=== PATIENT | male | born 1960 | race Caucasian/White ===

== ENCOUNTER 2022-04-07 11:43 | Observation (INO) | payer MEDICARE ==
[2022-04-07 12:06] LABS: Absolute Neutrophil Ct (ANC) 5.93 x10^3/uL (1.4-6.9); Basophil (Absolute #) 0.03 x10^3/uL (0-0.4); Eosinophil % 0.6 % (0.00-5.0); Eosinophil (Absolute #) 0.04 x10^3/uL (0-0.5); Hematocrit 32.6 % (42-50); Hemoglobin 11.8 g/dL (12.5-18.0); Lymphocyte (Absolute #) 0.39 x10^3/uL (1.0-4.6); Lymphocytes % 5.5 % (24.0-44.0); Mean Cell Volume 82.1 fL (78-100); Mean Corpuscular Hemoglobin 29.7 pg (26-32); Mean Corpuscular Hgb Concent. 36.2 g/dL (32-36); Mean Platelet Volume 7.6 fL (7.5-11.0); Monocyte (Absolute #) 0.63 x10^3/uL (0.0-1.3); Monocytes % 8.9 % (0.0-12.0); Neutrophil % 83.3 % (36.0-66.0); Platelet Count 209 x10^3/uL (150-450); Red Blood Count 3.97 x10^6/uL (4.1-5.6); Red Cell Distribution Width 13.8 % (11.5-14.0); White Blood Count 7.1 x10^3/uL (4.0-10.5)
[2022-04-07 12:18] LABS: ALBUMIN 4.5 g/dL (3.5-5.0); ALKALINE PHOSPHATASE 113 U/L (38-126); ANION GAP 14.6 MEQ/L (5-15); BLOOD UREA NITROGEN 10 mg/dL (9-20); CHLORIDE 72 mmol/L (98-107); Calcium 9.2 mg/dL (8.4-10.2); Carbon Dioxide 25 mmol/L (22-30); Creatinine 1 0.63 mg/dL (0.66-1.25); EST GLOMERULAR FILTRATION RATE > 60.0 ML/MIN; Glucose 106 mg/dL (74-106); Potassium 3.8 mmol/L (3.5-5.1); SGOT/AST 40 U/L (17-59); SGPT/ALT 28 U/L (0-50); Total Protein 8.1 g/dL (6.3-8.2)
--- NOTE | 2022-04-07 12:24 | ERPHSYRPT ---
- History of Present Illness Source: patient, other (Daughter) Patient Subjective Stated Complaint: pt here for abnormal labs hes sodium was 109, he co nausea and aching all over. he states he has had this problem before Triage Nursing Assessment: pt alert, appears weak, was able to walk to room,. 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 He has been hospitalized x 2 for hyponatremia in [place]. Pt has had N/V over the last 3 days but denies diarrhea/chest pain/fever/dyspnea. No mental status changes are reported. Timing/Duration: yesterday Severity: moderate Modifying Factors: Improves With: nothing Associated Symptoms: nausea, vomiting, loss of appetite, malaise, weakness, No abdominal pain, No shortness of breath, No heartburn, No diaphoresis, No cough, No chills, No chest pain, No fever, No headaches, No rash, No syncope, No seizure Allergies/Adverse Reactions: No Known Drug Allergies Allergy (Unverified 04/07/22 11:54) Home Medications: Amlodipine Besylate [Norvasc] 1 ea DAILY 04/07/22 [History] Levothyroxine Sodium [Euthyrox] 1 ea DAILY 04/07/22 [History] Lisinopril 10 mg [Zestril 10 MG] 10 mg PO DAILY 04/07/22 [History] Magnesium Oxide 400 mg [Mag-Ox 400] 400 mg PO DAILY 04/07/22 [History] Potassium Chloride 40 meq PO DAILY 04/07/22 [History] Tamsulosin HCl 0.4 mg [Flomax 0.4 MG] 0.4 mg PO DAILY 04/07/22 [History] Urea [Ure-Na] 1 ea DAILY 04/07/22 [History] Hx Tetanus, Diphtheria Vaccination/Date Given: No Hx Influenza Vaccination/Date Given: No Hx Pneumococcal Vaccination/Date Given: No Immunizations Up to Date: Yes Travel Risk - International Travel Have you traveled outside of the country in past 3 weeks: No - Coronavirus Screening Are you exhibiting any of the following symptoms?: No - Vaccine Status Have you recieved a Covid-19 vaccination: Yes [employer]: Unknown - Vaccination Dates Date of 2cond Vaccination (if applicable): 2020 Dates if Unknown: ? - Review of Systems Constitutional: No Symptoms Eyes: No Symptoms Ears, Nose, & Throat: No Symptoms Respiratory: No Symptoms Cardiac: No Symptoms Abdominal/Gastrointestinal: No Symptoms, Nausea, Vomiting Genitourinary Symptoms: No Symptoms Musculoskeletal: No Symptoms Skin: No Symptoms Neurological: No Symptoms Psychological: No Symptoms Endocrine: No Symptoms Hematologic/Lymphatic: No Symptoms Immunological/Allergic: No Symptoms - Past Medical History Pertinent Past Medical History: Yes Cardiac History: Hypertension Respiratory History: COPD Other Medical History: throat cancer, liver cancer, possoble lung ca - Past Surgical History Past Surgical History: Yes Other Surgical History: port a cath - Social History Smoking Status: Former smoker Exposure to second hand smoke: No Drug Use: none Patient Lives Alone: No Significant Family History: no pertinent family hx - Nursing Vital Signs Nursing Vital Signs: Initial Vital Signs Temperature 97.4 F 04/07/22 11:47 Respiratory Rate 20 04/07/22 11:47 Pain Scale Pain Intensity 4 Mildly tachypneic - Physical Exam General Appearance: no apparent distress Eye Exam: PERRL/EOMI, eyes nml inspection Ears, Nose, Throat Exam: normal ENT inspection, TMs normal, pharynx normal, moist mucous membranes Neck Exam: normal inspection, non-tender, supple, full range of motion, No meningismus, No mass, No Brudzinski, No Kernig's, No carotid bruit Respiratory Exam: airway intact, crackles/rales (Faint rales at bases B), No chest tenderness Cardiovascular Exam: regular rate/rhythm, normal heart sounds, normal peripheral pulses, No murmur Gastrointestinal/Abdomen Exam: soft, normal bowel sounds, No tenderness Back Exam: normal inspection, normal range of motion, No CVA tenderness, No vertebral tenderness Extremity Exam: normal inspection, normal range of motion, pelvis stable Neurologic Exam: alert, oriented x 3, cooperative, setup operator II-XII nml as tested, normal mood/affect, sensation nml Skin Exam: normal color Lymphatic Exam: No adenopathy - Course Nursing assessment & vital signs reviewed: Yes EKG Interpreted by Me: RATE (NSR/Rate72/Prolonged QTc/1mm ST depression V2) Ordered Tests: Active Orders 24 hr Category Date Time Status EKG-ER Only STAT Care 04/07/22 12:24 Completed IV Insertion STAT Care 04/07/22 12:03 Completed Heart-Healthy Diet Diet 04/07/22 Dinner Active BMP AM.LAB Lab 04/08/22 04:00 Ordered BMP Stat Lab 04/07/22 21:00 Ordered CBC W DIFF AM.LAB Lab 04/08/22 04:00 Ordered CBC W DIFF Stat Lab 04/07/22 12:00 Completed CMP Stat Lab 04/07/22 12:00 Completed TROPONIN Q3H Lab 04/07/22 12:30 Completed TROPONIN Q3H Lab 04/07/22 15:48 Completed TROPONIN Q3H Lab 04/07/22 18:30 Ordered TROPONIN Q3H Lab 04/07/22 21:30 Ordered TROPONIN Q3H Lab 04/08/22 00:30 Ordered Transfer Order Routine Transfer 04/07/22 Completed Medication Summary Generic Name Dose Route Start Last Admin Trade Name Freq PRN Reason Stop Dose Admin Amlodipine Besylate 10 mg 04/08/22 10:00 Amlodipine Besylate 5 Mg Tablet PO 05/08/22 09:59 DAILY CAIO Sodium Chloride 1,000 mls @ 50 mls/hr 04/07/22 13:15 04/07/22 13:14 Sodium Chloride 0.9% 1000 Ml IV 05/07/22 13:14 50 mls/hr .Q20H CAIO Administration Levothyroxine Sodium 100 mcg 04/07/22 15:00 04/07/22 15:43 Levothyroxine Sodium 100 Mcg Tablet PO 05/07/22 14:59 100 mcg DAILY CAIO Administration Lisinopril 2.5 mg 04/08/22 10:00 Lisinopril 5 Mg Tablet PO 05/08/22 09:59 DAILY CAIO Magnesium Oxide 400 mg 04/07/22 15:00 04/07/22 15:42 Magnesium Oxide 400 Mg Tablet PO 05/07/22 14:59 400 mg DAILY CAIO Administration Potassium Chloride 40 meq 04/07/22 15:00 04/07/22 15:42 Potassium Chloride Tab 10 Meq Tab PO 05/07/22 14:59 40 meq DAILY CAIO Administration Tamsulosin HCl 0.4 mg 04/07/22 15:00 04/07/22 15:42 Tamsulosin Hcl 0.4 Mg Cap PO 05/07/22 14:59 0.4 mg DAILY CAIO Administration Urea 15 gm 04/07/22 15:00 04/07/22 15:41 Urea 15 Gm Powd.Pack PO 05/07/22 14:59 15 gm DAILY CAIO Administration Lab/Rad Data: Laboratory Result Diagrams 04/07/22 12:00 04/07/22 12:00 Laboratory Results 04/07/22 04/07/22 04/07/22 Range/Units 13:00 12:30 12:00 WBC (4.0-10.5) x10^3/uL RBC (4.1-5.6) x10^6/uL Hgb (12.5-18.0) g/dL Hct (42-50) % MCV (78-100) fL MCH (26-32) pg MCHC (32-36) g/dL RDW (11.5-14.0) % Plt Count (150-450) x10^3/uL MPV (7.5-11.0) fL Gran % (36.0-66.0) % Immature Gran % (Auto) (0.00-0.4) % Nucleat RBC Rel Count (0.00-0.1) % Eos # (Auto) (0-0.5) x10^3/uL Immature Gran # (Auto) (0.00-0.03) x10^3u/L Absolute Lymphs (auto) (1.0-4.6) x10^3/uL Absolute Monos (auto) (0.0-1.3) x10^3/uL Absolute Nucleated RBC (0.00-0.01) x10^3u/L Lymphocytes % (24.0-44.0) % Monocytes % (0.0-12.0) % Eosinophils % (0.00-5.0) % Basophils % (0.0-0.4) % Absolute Granulocytes (1.4-6.9) x10^3/uL Basophils # (0-0.4) x10^3/uL Sodium 107 L* (137-145) mmol/L Potassium 3.8 (3.5-5.1) mmol/L Chloride 72 L (98-107) mmol/L Carbon Dioxide 25 (22-30) mmol/L Anion Gap 14.6 (5-15) MEQ/L BUN 10 (9-20) mg/dL Creatinine 0.63 L (0.66-1.25) mg/dL Estimated GFR > 60.0 ML/MIN Glucose 106 (74-106) mg/dL Calcium 9.2 (8.4-10.2) mg/dL Total Bilirubin 1.00 (0.2-1.3) mg/dL AST 40 (17-59) U/L ALT 28 (0-50) U/L Alkaline Phosphatase 113 (38-126) U/L Troponin I < 0.012 (0.000-0.034) ng/mL Serum Total Protein 8.1 (6.3-8.2) g/dL Albumin 4.5 (3.5-5.0) g/dL Influenza Type A Ag NEGATIVE (NEGATIVE) Influenza Type B Ag NEGATIVE (NEGATIVE) RSV (PCR) NEGATIVE (Negative) SARS-CoV-2 (PCR) NEGATIVE (NEGATIVE) 04/07/22 Range/Units 12:00 WBC 7.1 (4.0-10.5) x10^3/uL RBC 3.97 L (4.1-5.6) x10^6/uL Hgb 11.8 L (12.5-18.0) g/dL Hct 32.6 L (42-50) % MCV 82.1 (78-100) fL MCH 29.7 (26-32) pg MCHC 36.2 H (32-36) g/dL RDW 13.8 (11.5-14.0) % Plt Count 209 (150-450) x10^3/uL MPV 7.6 (7.5-11.0) fL Gran % 83.3 H (36.0-66.0) % Immature Gran % (Auto) 1.3 H (0.00-0.4) % Nucleat RBC Rel Count 0.0 (0.00-0.1) % Eos # (Auto) 0.04 (0-0.5) x10^3/uL Immature Gran # (Auto) 0.09 H (0.00-0.03) x10^3u/L Absolute Lymphs (auto) 0.39 L (1.0-4.6) x10^3/uL Absolute Monos (auto) 0.63 (0.0-1.3) x10^3/uL Absolute Nucleated RBC 0.00 (0.00-0.01) x10^3u/L Lymphocytes % 5.5 L (24.0-44.0) % Monocytes % 8.9 (0.0-12.0) % Eosinophils % 0.6 (0.00-5.0) % Basophils % 0.4 (0.0-0.4) % Absolute Granulocytes 5.93 (1.4-6.9) x10^3/uL Basophils # 0.03 (0-0.4) x10^3/uL Sodium (137-145) mmol/L Potassium (3.5-5.1) mmol/L Chloride (98-107) mmol/L Carbon Dioxide (22-30) mmol/L Anion Gap (5-15) MEQ/L BUN (9-20) mg/dL Creatinine (0.66-1.25) mg/dL Estimated GFR ML/MIN Glucose (74-106) mg/dL Calcium (8.4-10.2) mg/dL Total Bilirubin (0.2-1.3) mg/dL AST (17-59) U/L ALT (0-50) U/L Alkaline Phosphatase (38-126) U/L Troponin I (0.000-0.034) ng/mL Serum Total Protein (6.3-8.2) g/dL Albumin (3.5-5.0) g/dL Influenza Type A Ag (NEGATIVE) Influenza Type B Ag (NEGATIVE) RSV (PCR) (Negative) SARS-CoV-2 (PCR) (NEGATIVE) - Progress Progress Note: 04/07/22 13:[address] 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 Discussed with : Carlos Counseled pt/family regarding: lab results, diagnosis - Departure Departure Disposition: Observation Clinical Impression: Hyponatremia Condition: Stable Critical Care Time: No
[2022-04-07 12:26] LABS: SODIUM 107 mmol/L (137-145)
[2022-04-07] MEDS ORDERED: Sodium Chloride 0.9% 1000 ML 1,000 ML IV SCH (13:15)
[2022-04-07 13:41] LABS: INFLUENZA A NEGATIVE (NEGATIVE); INFLUENZA B NEGATIVE (NEGATIVE); RESPIRATORY SYNCTIAL VIRUS NEGATIVE (Negative); SARS-CoV-2 Xpert Express NEGATIVE (NEGATIVE)
[2022-04-07] MEDS: URE-NA PO SCH (15:41)
[2022-04-07] MEDS: Flomax 0.4 MG PO SCH (15:42)
[2022-04-07] MEDS: Klor Con PO SCH (15:42)
[2022-04-07] MEDS: MAG-OX 400 PO SCH (15:42)
[2022-04-07] MEDS: SYNTHROID 100 MCG PO SCH (15:43)
[2022-04-07] MEDS ORDERED: TORAdol 30 mg Injection IV ONE (20:00)
[2022-04-07 21:37] LABS: ANION GAP 10.7 MEQ/L (5-15); BLOOD UREA NITROGEN 21 mg/dL (9-20); CHLORIDE 73 mmol/L (98-107); Calcium 8.9 mg/dL (8.4-10.2); Carbon Dioxide 27 mmol/L (22-30); Creatinine 1 0.75 mg/dL (0.66-1.25); EST GLOMERULAR FILTRATION RATE > 60.0 ML/MIN; Glucose 114 mg/dL (74-106); NT PRO BNP 57.6 pg/mL (0-900); Potassium 4.4 mmol/L (3.5-5.1)
[2022-04-07 21:40] LABS: SODIUM 107 mmol/L (137-145)
[2022-04-08 05:19] LABS: Absolute Neutrophil Ct (ANC) 5.95 x10^3/uL (1.4-6.9); Basophil (Absolute #) 0.02 x10^3/uL (0-0.4); Eosinophil % 1.8 % (0.00-5.0); Eosinophil (Absolute #) 0.14 x10^3/uL (0-0.5); Hematocrit 30.5 % (42-50); Hemoglobin 10.9 g/dL (12.5-18.0); Lymphocyte (Absolute #) 0.67 x10^3/uL (1.0-4.6); Lymphocytes % 8.7 % (24.0-44.0); Mean Cell Volume 81.8 fL (78-100); Mean Corpuscular Hemoglobin 29.2 pg (26-32); Mean Corpuscular Hgb Concent. 35.7 g/dL (32-36); Monocyte (Absolute #) 0.77 x10^3/uL (0.0-1.3); Neutrophil % 77.6 % (36.0-66.0); Platelet Count 213 x10^3/uL (150-450); Red Blood Count 3.73 x10^6/uL (4.1-5.6); White Blood Count 7.7 x10^3/uL (4.0-10.5)
[2022-04-08 05:29] LABS: ANION GAP 8.6 MEQ/L (5-15); BLOOD UREA NITROGEN 15 mg/dL (9-20); CHLORIDE 76 mmol/L (98-107); Calcium 8.7 mg/dL (8.4-10.2); Carbon Dioxide 27 mmol/L (22-30); Creatinine 1 0.59 mg/dL (0.66-1.25); EST GLOMERULAR FILTRATION RATE > 60.0 ML/MIN; Glucose 94 mg/dL (74-106); Potassium 4.2 mmol/L (3.5-5.1)
[2022-04-08 05:40] LABS: SODIUM 109 mmol/L (137-145)
[2022-04-08] MEDS: Klor Con PO SCH (09:00)
[2022-04-08] MEDS: SYNTHROID 100 MCG PO SCH (09:00)
[2022-04-08] MEDS: MAG-OX 400 PO SCH (09:00)
[2022-04-08] MEDS: Flomax 0.4 MG PO SCH ×2 (09:01→09:21)
[2022-04-08] MEDS: URE-NA PO SCH (09:02)
[2022-04-08] MEDS ORDERED: NON-FORMULARY ITEM (Potassium Chloride [Potassium Chloride] 40 MEQ/15 ML Liquid) PO SCH (10:00)
[2022-04-08] MEDS ORDERED: Zestril 5 MG PO SCH (10:00)
[2022-04-08] MEDS ORDERED: NON-FORMULARY ITEM (Amlodipine Besylate [Norvasc] 10 MG Tablet) PO SCH (10:00)
[2022-04-08] MEDS ORDERED: NORVASC 5 MG PO SCH ×2 (10:00→22:00)
[2022-04-08 11:46] VITALS: BP 114/62; PULSE 67; O2SAT 97
--- NOTE | 2022-04-08 12:53 | PCM.SSS ---
History of Present Illness - Chief Complaint Chief Complaint: hyponatremia History of Present Illness: is a 61 year old male patient of Dr Dalton Rodrigues who has chronic hyponatremia,hx throat cancer mets to lung and liver,HTN,COPD,Hypothyroid,BPH. Oncologist is Dr Gale. Sodium in ER was 107. Patient reports he is followed by Manager Contact ,Dr Mullen, and per record 03/27/22 sodium was 131 . Patient was admited to [facility] on IV NS then hypertonic solution while awaiting transfer to higher level of care. Today 4AM nlffww=[id number] and Noon =[id number].Patient is sitting up eating and has normal m entation. C/O feeling achey all over and is hungry but a little nauseated. States he has been nauseated with some loose stools and has not eaten much over the past 3 days.He did not answer his phone so I sent the police to his house and patient was brought to ER. Since admission patient has has a few spells of choking on fluids which he states has become more of a problem. I spoke to Dr Gale today who will be consulting once patient is transfered. Hospitalist Dr Santos accepted patient to transfer to [facility] ICU for hyponatremia. Medications & Allergies Home Medications: Home Medication List Amlodipine Besylate [Norvasc] 1 ea PO HS 04/07/22 [History Confirmed 04/08/22] Levothyroxine Sodium [Euthyrox] 1 ea DAILY 04/07/22 [History Confirmed 04/07/22] Lisinopril 10 mg [Zestril 10 MG] 10 mg PO DAILY 04/07/22 [History Confirmed 04/07/22] Magnesium Oxide 400 mg [Mag-Ox 400] 400 mg PO DAILY 04/07/22 [History Confirmed 04/07/22] Potassium Chloride 40 meq PO DAILY 04/07/22 [History Confirmed 04/07/22] Tamsulosin HCl 0.4 mg [Flomax 0.4 MG] 0.4 mg PO HS 04/07/22 [History Confirmed 04/08/22] Urea [Ure-Na] 1 ea BID 04/07/22 [History Confirmed 04/08/22] Allergies/Adverse Reactions: Allergies Allergy/AdvReac Type Severity Reaction Status Date / Time No Known Drug Allergies Allergy Unverified 04/07/22 11:54 - Past Medical History Past Medical History: Yes Neurological History: No Pertinent History ENT History: No Pertinent History Cardiac History: Hypertension Respiratory History: COPD Endocrine Medical History: No Pertinent History Musculoskelatal History: No Pertinent History GI Medical History: No Pertinent History History: No Pertinent History Pyscho-Social History: No Pertinent History Male Reproductive Disorders: No Pertinent History Comment: throat cancer, liver cancer, possoble lung ca - Past Surgical History Past Surgical History: Yes Neuro Surgical History: No Pertinent History Cardiac History: No Pertinent History Respiratory Surgery: No Pertinent History GI Surgical History: No Pertinent History Genitourinary Surgical Hx: No Pertinent History Musculskeletal Surgical Hx: No Pertinent History Male Surgical History: No Pertinent History Other Surgical History: port a cath - Social History Smoking Status: Former smoker How long have you smoked: 20 yrs Exposure to second hand smoke: No Alcohol: Rarely Drug Use: none Significant Family History: no pertinent family hx - Physical Exam Vital Signs: Vital Signs - 24 hr Temp Pulse Resp BP BP Pulse Ox 04/08/22 11:45 97 F 67 16 114/62 97 04/08/22 08:00 19 04/08/22 07:38 97.7 F 66 18 107/56 99 04/08/22 04:00 97.9 F 67 18 132/63 96 04/08/22 00:00 20 04/07/22 23:33 98.2 F 66 20 110/60 98 04/07/22 21:00 124/73 04/07/22 20:00 16 04/07/22 19:55 98.4 F 65 18 87/52 77/49 98 04/07/22 19:35 78/50 04/07/22 16:00 19 04/07/22 14:08 98.0 F 68 19 136/81 136/81 98 04/07/22 13:07 72 18 119/75 98 Results - Labs Lab/Micro Results: Lab Results-Last 24 Hours 04/07/22 04/07/22 04/07/22 Range/Units 12:00 12:30 13:00 WBC 7.1 (4.0-10.5) x10^3/uL RBC 3.97 L (4.1-5.6) x10^6/uL Hgb 11.8 L (12.5-18.0) g/dL Hct 32.6 L (42-50) % MCV 82.1 (78-100) fL MCH 29.7 (26-32) pg MCHC 36.2 H (32-36) g/dL RDW 13.8 (11.5-14.0) % Plt Count 209 (150-450) x10^3/uL MPV 7.6 (7.5-11.0) fL Gran % 83.3 H (36.0-66.0) % Immature Gran % (Auto) 1.3 H (0.00-0.4) % Nucleat RBC Rel Count 0.0 (0.00-0.1) % Eos # (Auto) 0.04 (0-0.5) x10^3/uL Immature Gran # (Auto) 0.09 H (0.00-0.03) x10^3u/L Absolute Lymphs (auto) 0.39 L (1.0-4.6) x10^3/uL Absolute Monos (auto) 0.63 (0.0-1.3) x10^3/uL Absolute Nucleated RBC 0.00 (0.00-0.01) x10^3u/L Lymphocytes % 5.5 L (24.0-44.0) % Monocytes % 8.9 (0.0-12.0) % Eosinophils % 0.6 (0.00-5.0) % Basophils % 0.4 (0.0-0.4) % Absolute Granulocytes 5.93 (1.4-6.9) x10^3/uL Basophils # 0.03 (0-0.4) x10^3/uL Sodium (137-145) mmol/L Potassium (3.5-5.1) mmol/L Chloride (98-107) mmol/L Carbon Dioxide (22-30) mmol/L Anion Gap (5-15) MEQ/L BUN (9-20) mg/dL Creatinine (0.66-1.25) mg/dL Estimated GFR ML/MIN Glucose (74-106) mg/dL Calcium (8.4-10.2) mg/dL Troponin I < 0.012 (0.000-0.034) ng/mL NT-Pro-B Natriuret Pep (0-900) pg/mL Influenza Type A Ag NEGATIVE (NEGATIVE) Influenza Type B Ag NEGATIVE (NEGATIVE) RSV (PCR) NEGATIVE (Negative) SARS-CoV-2 (PCR) NEGATIVE (NEGATIVE) 04/07/22 04/07/22 04/07/22 Range/Units 15:48 18:18 21:14 WBC (4.0-10.5) x10^3/uL RBC (4.1-5.6) x10^6/uL Hgb (12.5-18.0) g/dL Hct (42-50) % MCV (78-100) fL MCH (26-32) pg MCHC (32-36) g/dL RDW (11.5-14.0) % Plt Count (150-450) x10^3/uL MPV (7.5-11.0) fL Gran % (36.0-66.0) % Immature Gran % (Auto) (0.00-0.4) % Nucleat RBC Rel Count (0.00-0.1) % Eos # (Auto) (0-0.5) x10^3/uL Immature Gran # (Auto) (0.00-0.03) x10^3u/L Absolute Lymphs (auto) (1.0-4.6) x10^3/uL Absolute Monos (auto) (0.0-1.3) x10^3/uL Absolute Nucleated RBC (0.00-0.01) x10^3u/L Lymphocytes % (24.0-44.0) % Monocytes % (0.0-12.0) % Eosinophils % (0.00-5.0) % Basophils % (0.0-0.4) % Absolute Granulocytes (1.4-6.9) x10^3/uL Basophils # (0-0.4) x10^3/uL Sodium (137-145) mmol/L Potassium (3.5-5.1) mmol/L Chloride (98-107) mmol/L Carbon Dioxide (22-30) mmol/L Anion Gap (5-15) MEQ/L BUN (9-20) mg/dL Creatinine (0.66-1.25) mg/dL Estimated GFR ML/MIN Glucose (74-106) mg/dL Calcium (8.4-10.2) mg/dL Troponin I < 0.012 < 0.012 < 0.012 (0.000-0.034) ng/mL NT-Pro-B Natriuret Pep (0-900) pg/mL Influenza Type A Ag (NEGATIVE) Influenza Type B Ag (NEGATIVE) RSV (PCR) (Negative) SARS-CoV-2 (PCR) (NEGATIVE) 04/07/22 04/08/22 04/08/22 Range/Units 21:14 04:50 04:50 WBC 7.7 (4.0-10.5) x10^3/uL RBC 3.73 L (4.1-5.6) x10^6/uL Hgb 10.9 L (12.5-18.0) g/dL Hct 30.5 L (42-50) % MCV 81.8 (78-100) fL MCH 29.2 (26-32) pg MCHC 35.7 (32-36) g/dL RDW 14.0 (11.5-14.0) % Plt Count 213 (150-450) x10^3/uL MPV 8.0 (7.5-11.0) fL Gran % 77.6 H (36.0-66.0) % Immature Gran % (Auto) 1.6 H (0.00-0.4) % Nucleat RBC Rel Count 0.0 (0.00-0.1) % Eos # (Auto) 0.14 (0-0.5) x10^3/uL Immature Gran # (Auto) 0.12 H (0.00-0.03) x10^3u/L Absolute Lymphs (auto) 0.67 L (1.0-4.6) x10^3/uL Absolute Monos (auto) 0.77 (0.0-1.3) x10^3/uL Absolute Nucleated RBC 0.00 (0.00-0.01) x10^3u/L Lymphocytes % 8.7 L (24.0-44.0) % Monocytes % 10.0 (0.0-12.0) % Eosinophils % 1.8 (0.00-5.0) % Basophils % 0.3 (0.0-0.4) % Absolute Granulocytes 5.95 (1.4-6.9) x10^3/uL Basophils # 0.02 (0-0.4) x10^3/uL Sodium 107 L* (137-145) mmol/L Potassium 4.4 (3.5-5.1) mmol/L Chloride 73 L (98-107) mmol/L Carbon Dioxide 27 (22-30) mmol/L Anion Gap 10.7 (5-15) MEQ/L BUN 21 H (9-20) mg/dL Creatinine 0.75 (0.66-1.25) mg/dL Estimated GFR > 60.0 ML/MIN Glucose 114 H (74-106) mg/dL Calcium 8.9 (8.4-10.2) mg/dL Troponin I < 0.012 (0.000-0.034) ng/mL NT-Pro-B Natriuret Pep 57.6 (0-900) pg/mL Influenza Type A Ag (NEGATIVE) Influenza Type B Ag (NEGATIVE) RSV (PCR) (Negative) SARS-CoV-2 (PCR) (NEGATIVE) 04/08/22 Range/Units 04:50 WBC (4.0-10.5) x10^3/uL RBC (4.1-5.6) x10^6/uL Hgb (12.5-18.0) g/dL Hct (42-50) % MCV (78-100) fL MCH (26-32) pg MCHC (32-36) g/dL RDW (11.5-14.0) % Plt Count (150-450) x10^3/uL MPV (7.5-11.0) fL Gran % (36.0-66.0) % Immature Gran % (Auto) (0.00-0.4) % Nucleat RBC Rel Count (0.00-0.1) % Eos # (Auto) (0-0.5) x10^3/uL Immature Gran # (Auto) (0.00-0.03) x10^3u/L Absolute Lymphs (auto) (1.0-4.6) x10^3/uL Absolute Monos (auto) (0.0-1.3) x10^3/uL Absolute Nucleated RBC (0.00-0.01) x10^3u/L Lymphocytes % (24.0-44.0) % Monocytes % (0.0-12.0) % Eosinophils % (0.00-5.0) % Basophils % (0.0-0.4) % Absolute Granulocytes (1.4-6.9) x10^3/uL Basophils # (0-0.4) x10^3/uL Sodium 109 L* (137-145) mmol/L Potassium 4.2 (3.5-5.1) mmol/L Chloride 76 L (98-107) mmol/L Carbon Dioxide 27 (22-30) mmol/L Anion Gap 8.6 (5-15) MEQ/L BUN 15 (9-20) mg/dL Creatinine 0.59 L (0.66-1.25) mg/dL Estimated GFR > 60.0 ML/MIN Glucose 94 (74-106) mg/dL Calcium 8.7 (8.4-10.2) mg/dL Troponin I (0.000-0.034) ng/mL NT-Pro-B Natriuret Pep (0-900) pg/mL Influenza Type A Ag (NEGATIVE) Influenza Type B Ag (NEGATIVE) RSV (PCR) (Negative) SARS-CoV-2 (PCR) (NEGATIVE) - Radiology Impressions Radiology Exams & Impressions: Radiology Procedures Category Date Time Status CHEST 1 VIEW (PORTABLE) Urgent Exams 04/08/22 09:57 Taken Hospital Summary - Vitals & Intake/Output Vital Signs: Vital Signs Temperature 97 F 04/08/22 11:45 Pulse Rate 67 04/08/22 11:45 Respiratory Rate 16 04/08/22 11:45 Blood Pressure 114/62 04/08/22 11:45 O2 Sat by Pulse Oximetry 97 04/08/22 11:45 Intake & Output: Intake & Output 04/06/22 04/07/22 04/08/22 04/09/22 11:59 11:59 11:59 11:59 Intake Total 1372 Output Total 1050 Balance 322 Weight 245 kg 100.3 kg - Lab Result Diagrams: 04/08/22 04:50 04/08/22 13:03 Lab Results-Last 24 Hrs: Lab Results-Last 24 Hours 04/07/22 04/07/22 04/07/22 Range/Units 12:00 12:30 13:00 WBC 7.1 (4.0-10.5) x10^3/uL RBC 3.97 L (4.1-5.6) x10^6/uL Hgb 11.8 L (12.5-18.0) g/dL Hct 32.6 L (42-50) % MCV 82.1 (78-100) fL MCH 29.7 (26-32) pg MCHC 36.2 H (32-36) g/dL RDW 13.8 (11.5-14.0) % Plt Count 209 (150-450) x10^3/uL MPV 7.6 (7.5-11.0) fL Gran % 83.3 H (36.0-66.0) % Immature Gran % (Auto) 1.3 H (0.00-0.4) % Nucleat RBC Rel Count 0.0 (0.00-0.1) % Eos # (Auto) 0.04 (0-0.5) x10^3/uL Immature Gran # (Auto) 0.09 H (0.00-0.03) x10^3u/L Absolute Lymphs (auto) 0.39 L (1.0-4.6) x10^3/uL Absolute Monos (auto) 0.63 (0.0-1.3) x10^3/uL Absolute Nucleated RBC 0.00 (0.00-0.01) x10^3u/L Lymphocytes % 5.5 L (24.0-44.0) % Monocytes % 8.9 (0.0-12.0) % Eosinophils % 0.6 (0.00-5.0) % Basophils % 0.4 (0.0-0.4) % Absolute Granulocytes 5.93 (1.4-6.9) x10^3/uL Basophils # 0.03 (0-0.4) x10^3/uL Sodium (137-145) mmol/L Potassium (3.5-5.1) mmol/L Chloride (98-107) mmol/L Carbon Dioxide (22-30) mmol/L Anion Gap (5-15) MEQ/L BUN (9-20) mg/dL Creatinine (0.66-1.25) mg/dL Estimated GFR ML/MIN Glucose (74-106) mg/dL Calcium (8.4-10.2) mg/dL Troponin I < 0.012 (0.000-0.034) ng/mL NT-Pro-B Natriuret Pep (0-900) pg/mL Influenza Type A Ag NEGATIVE (NEGATIVE) Influenza Type B Ag NEGATIVE (NEGATIVE) RSV (PCR) NEGATIVE (Negative) SARS-CoV-2 (PCR) NEGATIVE (NEGATIVE) 04/07/22 04/07/22 04/07/22 Range/Units 15:48 18:18 21:14 WBC (4.0-10.5) x10^3/uL RBC (4.1-5.6) x10^6/uL Hgb (12.5-18.0) g/dL Hct (42-50) % MCV (78-100) fL MCH (26-32) pg MCHC (32-36) g/dL RDW (11.5-14.0) % Plt Count (150-450) x10^3/uL MPV (7.5-11.0) fL Gran % (36.0-66.0) % Immature Gran % (Auto) (0.00-0.4) % Nucleat RBC Rel Count (0.00-0.1) % Eos # (Auto) (0-0.5) x10^3/uL Immature Gran # (Auto) (0.00-0.03) x10^3u/L Absolute Lymphs (auto) (1.0-4.6) x10^3/uL Absolute Monos (auto) (0.0-1.3) x10^3/uL Absolute Nucleated RBC (0.00-0.01) x10^3u/L Lymphocytes % (24.0-44.0) % Monocytes % (0.0-12.0) % Eosinophils % (0.00-5.0) % Basophils % (0.0-0.4) % Absolute Granulocytes (1.4-6.9) x10^3/uL Basophils # (0-0.4) x10^3/uL Sodium (137-145) mmol/L Potassium (3.5-5.1) mmol/L Chloride (98-107) mmol/L Carbon Dioxide (22-30) mmol/L Anion Gap (5-15) MEQ/L BUN (9-20) mg/dL Creatinine (0.66-1.25) mg/dL Estimated GFR ML/MIN Glucose (74-106) mg/dL Calcium (8.4-10.2) mg/dL Troponin I < 0.012 < 0.012 < 0.012 (0.000-0.034) ng/mL NT-Pro-B Natriuret Pep (0-900) pg/mL Influenza Type A Ag (NEGATIVE) Influenza Type B Ag (NEGATIVE) RSV (PCR) (Negative) SARS-CoV-2 (PCR) (NEGATIVE) 04/07/22 04/08/22 04/08/22 Range/Units 21:14 04:50 04:50 WBC 7.7 (4.0-10.5) x10^3/uL RBC 3.73 L (4.1-5.6) x10^6/uL Hgb 10.9 L (12.5-18.0) g/dL Hct 30.5 L (42-50) % MCV 81.8 (78-100) fL MCH 29.2 (26-32) pg MCHC 35.7 (32-36) g/dL RDW 14.0 (11.5-14.0) % Plt Count 213 (150-450) x10^3/uL MPV 8.0 (7.5-11.0) fL Gran % 77.6 H (36.0-66.0) % Immature Gran % (Auto) 1.6 H (0.00-0.4) % Nucleat RBC Rel Count 0.0 (0.00-0.1) % Eos # (Auto) 0.14 (0-0.5) x10^3/uL Immature Gran # (Auto) 0.12 H (0.00-0.03) x10^3u/L Absolute Lymphs (auto) 0.67 L (1.0-4.6) x10^3/uL Absolute Monos (auto) 0.77 (0.0-1.3) x10^3/uL Absolute Nucleated RBC 0.00 (0.00-0.01) x10^3u/L Lymphocytes % 8.7 L (24.0-44.0) % Monocytes % 10.0 (0.0-12.0) % Eosinophils % 1.8 (0.00-5.0) % Basophils % 0.3 (0.0-0.4) % Absolute Granulocytes 5.95 (1.4-6.9) x10^3/uL Basophils # 0.02 (0-0.4) x10^3/uL Sodium 107 L* (137-145) mmol/L Potassium 4.4 (3.5-5.1) mmol/L Chloride 73 L (98-107) mmol/L Carbon Dioxide 27 (22-30) mmol/L Anion Gap 10.7 (5-15) MEQ/L BUN 21 H (9-20) mg/dL Creatinine 0.75 (0.66-1.25) mg/dL Estimated GFR > 60.0 ML/MIN Glucose 114 H (74-106) mg/dL Calcium 8.9 (8.4-10.2) mg/dL Troponin I < 0.012 (0.000-0.034) ng/mL NT-Pro-B Natriuret Pep 57.6 (0-900) pg/mL Influenza Type A Ag (NEGATIVE) Influenza Type B Ag (NEGATIVE) RSV (PCR) (Negative) SARS-CoV-2 (PCR) (NEGATIVE) 04/08/22 Range/Units 04:50 WBC (4.0-10.5) x10^3/uL RBC (4.1-5.6) x10^6/uL Hgb (12.5-18.0) g/dL Hct (42-50) % MCV (78-100) fL MCH (26-32) pg MCHC (32-36) g/dL RDW (11.5-14.0) % Plt Count (150-450) x10^3/uL MPV (7.5-11.0) fL Gran % (36.0-66.0) % Immature Gran % (Auto) (0.00-0.4) % Nucleat RBC Rel Count (0.00-0.1) % Eos # (Auto) (0-0.5) x10^3/uL Immature Gran # (Auto) (0.00-0.03) x10^3u/L Absolute Lymphs (auto) (1.0-4.6) x10^3/uL Absolute Monos (auto) (0.0-1.3) x10^3/uL Absolute Nucleated RBC (0.00-0.01) x10^3u/L Lymphocytes % (24.0-44.0) % Monocytes % (0.0-12.0) % Eosinophils % (0.00-5.0) % Basophils % (0.0-0.4) % Absolute Granulocytes (1.4-6.9) x10^3/uL Basophils # (0-0.4) x10^3/uL Sodium 109 L* (137-145) mmol/L Potassium 4.2 (3.5-5.1) mmol/L Chloride 76 L (98-107) mmol/L Carbon Dioxide 27 (22-30) mmol/L Anion Gap 8.6 (5-15) MEQ/L BUN 15 (9-20) mg/dL Creatinine 0.59 L (0.66-1.25) mg/dL Estimated GFR > 60.0 ML/MIN Glucose 94 (74-106) mg/dL Calcium 8.7 (8.4-10.2) mg/dL Troponin I (0.000-0.034) ng/mL NT-Pro-B Natriuret Pep (0-900) pg/mL Influenza Type A Ag (NEGATIVE) Influenza Type B Ag (NEGATIVE) RSV (PCR) (Negative) SARS-CoV-2 (PCR) (NEGATIVE) - Radiology Exams Ordered Rad Exams-Entire Visit: Radiology Procedures Category Date Time Status CHEST 1 VIEW (PORTABLE) Urgent Exams 04/08/22 09:57 Taken - Discharge Disposition: Home, Self-Care Condition: Stable Prescriptions: No Action Lisinopril 10 mg [Zestril 10 MG] 10 mg PO DAILY Tamsulosin HCl 0.4 mg [Flomax 0.4 MG] 0.4 mg PO HS Urea [Ure-Na] 1 ea BID Potassium Chloride 40 meq PO DAILY Magnesium Oxide 400 mg [Mag-Ox 400] 400 mg PO DAILY Levothyroxine Sodium [Euthyrox] 1 ea DAILY Amlodipine Besylate [Norvasc] 1 ea PO HS Follow up with: DALTON RODRIGUES [Primary Care Provider] - Forms: Ambulance Transport Record, Transfer Record Inter-Agency
[2022-04-08] MEDS ORDERED: Zofran 4 MG/2 ML VIAL IV PRN (13:02)
[2022-04-08 13:14] LABS: ANION GAP 13.2 MEQ/L (5-15); BLOOD UREA NITROGEN 20 mg/dL (9-20); CHLORIDE 76 mmol/L (98-107); Calcium 9.1 mg/dL (8.4-10.2); Carbon Dioxide 25 mmol/L (22-30); Creatinine 1 0.65 mg/dL (0.66-1.25); EST GLOMERULAR FILTRATION RATE > 60.0 ML/MIN; Glucose 127 mg/dL (74-106); Potassium 4.4 mmol/L (3.5-5.1)
[2022-04-08 13:17] LABS: SODIUM 110 mmol/L (137-145)
--- NOTE | 2022-04-08 17:43 | XRAY ---
Indication: Abnormal lung sounds. Difficulty swallowing. Comparison: None Portable chest hyperinflated with 2.1 cm right midlung nodular density. No focal infiltrate, consolidation, or large effusion. Heart borderline enlarged with left Port-A-Cath. Bony thorax intact with mild degenerative changes. Impression: Right midlung nodular density better evaluated with CT chest exam. Negative for acute pneumonic process or CHF. Comment: Preliminary interpretation made by [facility] who does not report right lung finding.
[2022-04-08] MEDS ORDERED: URE-NA PO SCH (22:00)
[2022-04-08] MEDS ORDERED: Flomax 0.4 MG PO SCH (22:00)
== END 2022-04-08 13:46 | disposition home or self-care (01) ==
LOC: ED 11:43 → MED SURG 13:52
PROVIDERS: ADMIT Family Medicine; ATTEND Family Medicine
DX: E87.1 Hypo-osmolality and hyponatremia (principal); I10 Essential (primary) hypertension; J44.9 Chronic obstructive pulmonary disease, unspecified; N40.0 Benign prostatic hyperplasia without lower urinary tract symptoms; Z85.05 Personal history of malignant neoplasm of liver; Z85.21 Personal history of malignant neoplasm of larynx; Z79.899 Other long term (current) drug therapy; Z20.828 Contact with and (suspected) exposure to other viral communicable diseases
CPT/HCPCS: 0241U; 36000; 36415; 71045; 80048; 80053; 83880; 84484; 85025; 93005; 99285; G0378; J1885; J2405; A9270-GY

== ENCOUNTER 2022-05-31 11:33 | Observation (INO) | payer MEDICARE ==
[2022-05-31] MEDS ORDERED: Lactated Ringers 0 ML IV ONE (11:47)
[2022-05-31] MEDS ORDERED: Sodium Chloride 0.9% 1000 ML 1,000 ML IV STA (11:51)
[2022-05-31 12:22] LABS: Hematocrit 27.1 % (42-50); Hemoglobin 8.5 g/dL (12.5-18.0); Mean Cell Volume 97.1 fL (78-100); Mean Corpuscular Hemoglobin 30.5 pg (26-32); Mean Corpuscular Hgb Concent. 31.4 g/dL (32-36); Mean Platelet Volume 10.4 fL (7.5-11.0); Platelet Count 43 x10^3/uL (150-450); Red Blood Count 2.79 x10^6/uL (4.1-5.6); Red Cell Distribution Width 23.8 % (11.5-14.0); White Blood Count 4.5 x10^3/uL (4.0-10.5)
[2022-05-31 13:26] LABS: ALBUMIN 3.1 g/dL (3.5-5.0); ALKALINE PHOSPHATASE 538 U/L (38-126); ANION GAP 12.4 MEQ/L (5-15); BLOOD UREA NITROGEN 20 mg/dL (9-20); CHLORIDE 93 mmol/L (98-107); Calcium 8.4 mg/dL (8.4-10.2); Carbon Dioxide 37 mmol/L (22-30); Creatinine 1 0.84 mg/dL (0.66-1.25); EST GLOMERULAR FILTRATION RATE > 60.0 ML/MIN; Glucose 108 mg/dL (74-106); MAGNESIUM 1.2 mg/dL (1.6-2.3); SGOT/AST 209 U/L (17-59); SGPT/ALT 80 U/L (0-50); SODIUM 139 mmol/L (137-145); Total Protein 6.1 g/dL (6.3-8.2)
[2022-05-31 13:28] LABS: Potassium 2.9 mmol/L (3.5-5.1)
[2022-05-31 13:43] LABS: ALBUMIN 2.9 g/dL (3.5-5.0); ALKALINE PHOSPHATASE 526 U/L (38-126); ANION GAP 12.4 MEQ/L (5-15); BLOOD UREA NITROGEN 18 mg/dL (9-20); CHLORIDE 95 mmol/L (98-107); Calcium 8.2 mg/dL (8.4-10.2); Carbon Dioxide 36 mmol/L (22-30); Creatinine 1 0.82 mg/dL (0.66-1.25); EST GLOMERULAR FILTRATION RATE > 60.0 ML/MIN; Glucose 99 mg/dL (74-106); SGOT/AST 195 U/L (17-59); SGPT/ALT 72 U/L (0-50); SODIUM 140 mmol/L (137-145); Total Protein 5.8 g/dL (6.3-8.2)
[2022-05-31 13:44] LABS: Potassium 2.6 mmol/L (3.5-5.1)
[2022-05-31 15:25] LABS: BAND 10 % (0.0-2.0); Basophil 0 % (0.0-1.0); Lymphocytes 19 % (24-44); Metamyelocyte 3 %; Monocyte 7 % (0.0-12.0); Myelocyte 1 %; Nucleated Red Blood Cell 10 %; Total Cells Counted 100
[2022-05-31 15:29] LABS: ANISOCYTOSIS 3+; Basophilic Stippling RARE; Platelet Estimate DECREASED (NORMAL); Poikilocytosis 1+; Polychromasia 1+
[2022-05-31 15:30] LABS: Ovalocytes 1+; Toxic Granulation 2+
[2022-05-31] MEDS: Sodium Chloride 0.9% W/ 20 mEq KCl/LITER 1,000 ML IV SCH ×2 (16:10→21:58)
[2022-05-31 17:06] LABS: INFLUENZA A NEGATIVE (NEGATIVE); INFLUENZA B NEGATIVE (NEGATIVE); RESPIRATORY SYNCTIAL VIRUS NEGATIVE (Negative); SARS-CoV-2 Xpert Express NEGATIVE (NEGATIVE)
[2022-05-31] MEDS ORDERED: MAG-OX 400 PO ONE (22:00)
[2022-05-31] MEDS ORDERED: PATIENT OWN MEDICATION PO ONE (22:07)
[2022-05-31] MEDS ORDERED: Klor Con PO ONE ×2 (22:07)
[2022-05-31] MEDS ORDERED: URE-NA PO ONE (22:10)
[2022-06-01] MEDS: Sodium Chloride 0.9% W/ 20 mEq KCl/LITER 1,000 ML IV SCH (03:38)
[2022-06-01 05:18] LABS: A-aADO2 202; ARTERIAL BLD GAS O2 SATURATION 93.2 % (95-100); ARTERIAL BLOOD GAS BASE EXCESS -0.7 (-2.0-2.0); ARTERIAL BLOOD GAS FIO2 44 %; ARTERIAL BLOOD GAS PCO2 36 mmHg (35-45); ARTERIAL BLOOD GAS PO2 67 mmHg (75-100); ARTERIAL BLOOD GAS pH 7.42 (7.35-7.45); CARBOXYHEMOGLOBIN 1.4 % THgb (0.0-6.9); HCO3- 23.4 (22-28); HGB O2 SAT 91.3 g/dF (94-100); Methhemoglobin 0.6 % (1.4-1.5)
[2022-06-01 05:19] LABS: ABG HEMOGLOBIN 6.5; ABG POTASSIUM 2.8 (3.5-5.1); ABG SITE LEFT RADIAL
[2022-06-01 05:20] LABS: ALLEN TEST OK? YES
[2022-06-01] MEDS ORDERED: Sodium Chloride 0.9% 1000 ML 1,000 ML IV SCH (06:00)
[2022-06-01 06:05] LABS: Hematocrit 18.6 % (42-50); Mean Cell Volume 101.1 fL (78-100); Mean Corpuscular Hemoglobin 29.9 pg (26-32); Mean Corpuscular Hgb Concent. 29.6 g/dL (32-36); Mean Platelet Volume 11.8 fL (7.5-11.0); Platelet Count 40 x10^3/uL (150-450); Red Blood Count 1.84 x10^6/uL (4.1-5.6); Red Cell Distribution Width 23.9 % (11.5-14.0); White Blood Count 3.5 x10^3/uL (4.0-10.5)
[2022-06-01 06:31] LABS: Hemoglobin 5.5 g/dL (12.5-18.0)
[2022-06-01 06:37] LABS: ANION GAP 13.2 MEQ/L (5-15); BLOOD UREA NITROGEN 21 mg/dL (9-20); CHLORIDE 100 mmol/L (98-107); Calcium 7.8 mg/dL (8.4-10.2); Carbon Dioxide 30 mmol/L (22-30); Creatinine 1 0.72 mg/dL (0.66-1.25); EST GLOMERULAR FILTRATION RATE > 60.0 ML/MIN; Glucose 103 mg/dL (74-106); SODIUM 140 mmol/L (137-145)
[2022-06-01 07:24] LABS: Potassium 2.8 mmol/L (3.5-5.1)
[2022-06-01] MEDS: POTASSIUM CHLORIDE 20 mEq IN WATER 100ML 20 MEQ/100 ML BAG IV SCH ×2 (07:39→10:46)
[2022-06-01 07:47] LABS: ABO TYPING O; Antibody Screen NEGATIVE (NEGATIVE); RH TYPING POSITIVE
[2022-06-01 07:48] LABS: CROSS MATCH (PRBC) COMPATIBLE (COMPATIBLE)
[2022-06-01 08:19] LABS: Slide Review YES
[2022-06-01] MEDS ORDERED: Sodium Chloride 0.9% 500 ML 500 ML IV PRN (09:23)
[2022-06-01] MEDS ORDERED: Lasix 20 MG/2 ML IV SCH (09:30)
[2022-06-01] MEDS ORDERED: MAGNESIUM SULF 2 G/50 ML BAG 2 GM/50 ML PIGGYBACK IV ONE (10:00)
[2022-06-01] MEDS ORDERED: Pepcid 20 MG VIAL IV SCH (10:00)
[2022-06-01] MEDS ORDERED: PROTONIX 40 MG IV IV SCH (10:00)
[2022-06-01] MEDS ORDERED: FLUZONE QUAD 2022-2023 SYRINGE IM ONE (10:00)
[2022-06-01 11:30] LABS: Iron 140 ug/dL (49-181); Iron Saturation 77 % (20-39); TIBC 182 ug/dL (261-497)
[2022-06-01 12:03] VITALS: BP 138/80; PULSE 93; O2SAT 97
--- NOTE | 2022-06-01 12:36 | XRAY ---
Indication: Hypoxemia. Lung cancer. Comparison: April 08, 2022 Portable apical lordotic chest demonstrates new right mid to lower lung consolidating infiltrates/atelectasis with right lung volume loss. Previous right lung nodule obscured by overlying monitoring wires/leads. Remaining heart and left lung unremarkable again with borderline cardiomegaly and left Port-A-Cath. Bony thorax intact.
[2022-06-02 10:32] LABS: Ferritin > 1000 ng/mL (17.9-464); Vitamin B12 > 1000 pg/mL (239-931)
[2022-06-05 23:16] LABS: Pathologist Review SEE SEPARATE REPORT
--- NOTE | 2022-06-14 06:22 | PCM.SSS ---
History of Present Illness - Chief Complaint Chief Complaint: DEHYDRATION, HYPOKALEMIA Date: 06/01/22 History of Present Illness: is a 61 year old male. Presented to ER with generalized weakness and several days of diarrhea prior to admission, pt. admitted for iv hydration and potassium supplementation. - Review of Systems Constitutional: No Fever, No Chills Eyes: No Symptoms Ears, Nose, & Throat: No Symptoms Respiratory: No Cough, No Short Of Breath Cardiac: No Chest Pain, No Edema, No Syncope Abdominal/Gastrointestinal: No Abdominal Pain, No Nausea, No Vomiting, No Diarrhea Genitourinary Symptoms: No Dysuria Musculoskeletal: No Back Pain, No Neck Pain Skin: No Rash Neurological: No Dizziness, No Focal Weakness, No Sensory Changes Psychological: No Symptoms Endocrine: No Symptoms Hematologic/Lymphatic: No Symptoms Immunological/Allergic: No Symptoms Medications & Allergies Home Medications: Home Medication List Levothyroxine Sodium [Euthyrox] 1 ea PO DAILY 04/07/22 [History Confirmed 05/31/22] Magnesium Oxide 400 mg [Mag-Ox 400] 400 mg PO BID 04/07/22 [History Confirmed 05/31/22] Urea [Ure-Na] 1 ea BID 04/07/22 [History Confirmed 05/31/22] Folic Acid/Multivit-Min/Lutein [Multi-Vitamin Gummies] 1 each PO DAILY 05/31/22 [History Confirmed 05/31/22] Potassium Chloride 60 meq PO HS 05/31/22 [History Confirmed 05/31/22] Sodium Chloride 3 gm PO QID 05/31/22 [History Confirmed 05/31/22] Allergies/Adverse Reactions: Allergies Allergy/AdvReac Type Severity Reaction Status Date / Time No Known Drug Allergies Allergy Verified 05/31/22 11:53 - Past Medical History Past Medical History: Yes Neurological History: No Pertinent History ENT History: No Pertinent History Cardiac History: Hypertension Respiratory History: COPD, Lung Cancer Endocrine Medical History: No Pertinent History Musculoskelatal History: Arthritis GI Medical History: No Pertinent History History: Renal Disease Pyscho-Social History: No Pertinent History Male Reproductive Disorders: No Pertinent History Comment: throat cancer, liver cancer, lung ca, arthritis - Past Surgical History Past Surgical History: Yes Neuro Surgical History: No Pertinent History Cardiac History: No Pertinent History Respiratory Surgery: No Pertinent History GI Surgical History: No Pertinent History Genitourinary Surgical Hx: No Pertinent History Musculskeletal Surgical Hx: No Pertinent History Male Surgical History: No Pertinent History Other Surgical History: port a cath, 13 lymph nodeS removed to right side neck dt throat cancer - Social History Smoking Status: Former smoker How long have you smoked: 20 yrs Exposure to second hand smoke: No Alcohol: None Drug Use: none Significant Family History: no pertinent family hx - Physical Exam General Appearance: no apparent distress, alert Neurologic Exam: alert, oriented x 3, cooperative, normal mood/affect, nml cerebellar function, nml station & gait, sensation nml, No motor deficits Eye Exam: PERRL/EOMI, eyes nml inspection Ears, Nose, Throat Exam: normal ENT inspection, TMs normal, pharynx normal, moist mucous membranes Neck Exam: normal inspection, non-tender, supple, full range of motion Respiratory Exam: normal breath sounds, lungs clear, No respiratory distress Cardiovascular Exam: regular rate/rhythm, normal heart sounds, normal peripheral pulses Gastrointestinal/Abdomen Exam: soft, normal bowel sounds, No tenderness, No mass Back Exam: normal inspection, normal range of motion, No CVA tenderness, No vertebral tenderness Extremity Exam: normal inspection, normal range of motion, pelvis stable Skin Exam: normal color, warm, dry, No rash Lymphatic Exam: No adenopathy Results - Labs Lab/Micro Results: Microbiology 06/01/22 07:00 Blood Culture Gram Stain - Final Blood Not Reportable Blood Culture - Final NO GROWTH 06/01/22 06:55 Blood Culture Gram Stain - Final Blood Not Reportable Blood Culture - Final NO GROWTH Assessment/Plan (1) Hypokalemia Status: Acute Code(s): E87.6 - HYPOKALEMIA (2) Hyponatremia Status: Acute Code(s): E87.1 - HYPO-OSMOLALITY AND HYPONATREMIA (3) GI bleed Status: Acute Code(s): K92.2 - GASTROINTESTINAL HEMORRHAGE, UNSPECIFIED Hospital Summary - Hospital Course Hospital Course: Pt. placed in observation, with metastatic lung cancer and noted the following morning to have a marked drop in hgb and no significant improvement in potassium, pt. will be in need of higher level of care under the observation of his cancer specialist. Pt. will be transferred for continuation of care. - Vitals & Intake/Output Vital Signs: Vital Signs Temperature 97.5 F 06/01/22 12:00 Pulse Rate 93 H 06/01/22 12:00 Respiratory Rate 15 06/01/22 12:00 Blood Pressure 138/80 06/01/22 12:00 O2 Sat by Pulse Oximetry 97 06/01/22 12:00 - Lab Result Diagrams: 06/01/22 05:45 06/01/22 05:45 Micro Results-Entire Visit: Microbiology 06/01/22 07:00 Blood Culture Gram Stain - Final Blood Not Reportable Blood Culture - Final NO GROWTH 06/01/22 06:55 Blood Culture Gram Stain - Final Blood Not Reportable Blood Culture - Final NO GROWTH - Procedures and Test Procedures and Tests throughout Hospitalization: Therapy Orders & Screens 06/01/22 05:43 Oxygen Nasal Cannula 6 lpm Comment: Diagnosis: DEHYDRATION, HYPOKALEMIA - Discharge Discharge Date: 06/01/22 Disposition: DC TO [facility] Condition: Stable Prescriptions: No Action Urea [Ure-Na] 1 ea BID Magnesium Oxide 400 mg [Mag-Ox 400] 400 mg PO BID Levothyroxine Sodium [Euthyrox] 1 ea PO DAILY Folic Acid/Multivit-Min/Lutein [Multi-Vitamin Gummies] 1 each PO DAILY Sodium Chloride 3 gm PO QID Potassium Chloride 60 meq PO HS Follow up with: ANTONIO RODRIGUES [Primary Care Provider] -
== END 2022-06-01 13:12 | disposition home or self-care (01) ==
LOC: INFUSION 11:33 → MED SURG 15:24
PROVIDERS: ADMIT Family Medicine; ATTEND Family Medicine
DX: E87.6 Hypokalemia (principal); E87.1 Hypo-osmolality and hyponatremia; K92.2 Gastrointestinal hemorrhage, unspecified; D64.9 Anemia, unspecified; E86.0 Dehydration; C78.7 Secondary malignant neoplasm of liver and intrahepatic bile duct; C34.90 Malignant neoplasm of unspecified part of unspecified bronchus or lung; C79.89 Secondary malignant neoplasm of other specified sites; I95.9 Hypotension, unspecified; Z79.899 Other long term (current) drug therapy; Z20.828 Contact with and (suspected) exposure to other viral communicable diseases
CPT/HCPCS: 0241U; 36415; 36430; 36600; 71045; 80048; 80053; 82375; 82607; 82728; 82803; 83540; 83550; 83605; 83735; 85007; 85027; 85045; 85046; 86850; 86900; 86901; 86922; 87040; 93268; 94762; 96360; 99211; G0378; P9016; J1642; J3480; A9270-GY; J3475